=== PATIENT | male | born 1965 | race Hispanic/Latino ===

== ENCOUNTER 2019-12-12 19:23 | Emergency (ER) | payer MEDICARE ==
[2019-12-12] MEDS ORDERED: Adacel (T-DAP) 0.5 ML SYRINGE ONE (19:32)
== END 2019-12-12 19:55 | disposition home or self-care (01) ==
LOC: MADERS 19:23
DX: S41.012A Laceration without foreign body of left shoulder, initial encounter (principal); I10 Essential (primary) hypertension; Z23 Encounter for immunization; W26.0XXA Contact with knife, initial encounter
CPT/HCPCS: 12001; 90471; 90715